=== PATIENT | male | born 1945 | race Caucasian/White ===

== ENCOUNTER 2021-05-28 19:10 | Inpatient (IN) | payer MEDICARE, BC ==
[~2021-05-28] VITALS: Ht 185.4 cm; Wt 102.1 kg
[2021-05-28 20:27] LABS: HEMATOCRIT 39.5 % (36.7-47.1); MEAN CORPUSCULAR HEMOGLOBIN 29.3 uug (23.8-33.4); MEAN CORPUSCULAR VOLUME 88.9 fL (73.0-96.2); PLATELET COUNT (AUTO) 271 K/uL (152-348)
[2021-05-28 20:33] LABS: CREATININE 0.7 mg/dL (0.6-1.3); POTASSIUM 3.4 mmol/L (3.5-5.1)
[2021-05-28 20:36] LABS: BILIRUBIN,DIRECT 0.1 mg/dL (0.0-0.2); BILIRUBIN,TOTAL 0.4 mg/dL (0.2-1.0)
[2021-05-28] MEDS ORDERED: CLONIDINE HCL 0.1 MG TABLET PO ONE (21:15)
[2021-05-28] MEDS ORDERED: CLONIDINE HCL 0.1 MG TABLET ONE (21:29)
[2021-05-28] MEDS ORDERED: TAMS-3 PO (22:23)
[2021-05-28] MEDS ORDERED: doxycycline PO (22:23)
[2021-05-28] MEDS ORDERED: METF-494 PO (22:23)
[2021-05-28] MEDS ORDERED: LOSA1TAB39 PO (22:23)
[2021-05-28] MEDS ORDERED: FINA5TAB11 PO (22:23)
[2021-05-28] MEDS ORDERED: SERT100T PO (22:23)
[2021-05-28] MEDS ORDERED: AMLO10TA59 PO (22:23)
[2021-05-28] MEDS ORDERED: SIMV-49 PO (22:23)
[2021-05-28] MEDS ORDERED: CARV25TA2 PO (22:23)
[2021-05-28] MEDS ORDERED: ZOLPIDEM 5 MG TABLET PO PRN (22:30)
[2021-05-28] MEDS ORDERED: MAG HYDROX/AL HYDROX/SIMETH 30 ML LIQUID UDC PO PRN (22:30)
[2021-05-28] MEDS ORDERED: BLOOD SUGAR DIAGNOSTIC 1 EACH STRIP VI ONE (22:30)
[2021-05-28] MEDS ORDERED: MAGNESIUM HYDROXIDE 30 ML LIQUID UDC PO PRN (22:30)
[2021-05-28] MEDS ORDERED: ACETAMINOPHEN 325 MG TABLET PO PRN (22:30)
[2021-05-28 23:07] VITALS: BP 166/76
[2021-05-29 07:30] VITALS: BP 163/80
[2021-05-29] MEDS: FLUOXETINE HCL 10 MG CAPSULE PO SCH (10:04)
[2021-05-29 15:07] VITALS: BP 174/71
[2021-05-29 19:42] VITALS: BP 165/75
[2021-05-29] MEDS ORDERED: ALBUTEROL SULFATE 2.5 MG/ 0.5 ML NEBU NEB PRN (19:45)
[2021-05-29] MEDS: SIMVASTATIN 40 MG TABLET PO SCH (20:30)
[2021-05-29] MEDS: TAMSULOSIN HCL 0.4 MG CAP.SR.24H PO SCH (20:30)
[2021-05-29] MEDS: CARVEDILOL 25 MG TABLET PO SCH (20:31)
[2021-05-30 07:30] VITALS: BP 166/73
[2021-05-30] MEDS: FINASTERIDE 5 MG TABLET PO SCH (08:49)
[2021-05-30] MEDS: CARVEDILOL 25 MG TABLET PO SCH ×2 (08:50→21:25)
[2021-05-30] MEDS: METFORMIN HCL 500 MG TABLET PO SCH ×2 (08:50→17:11)
[2021-05-30] MEDS: LOSARTAN POTASSIUM 50 MG TABLET PO SCH (08:50)
[2021-05-30] MEDS: HYDROCHLOROTHIAZIDE 25 MG TABLET PO SCH (08:51)
[2021-05-30] MEDS: FLUOXETINE HCL 10 MG CAPSULE PO SCH (08:51)
[2021-05-30] MEDS: AMLODIPINE 10 MG TABLET PO SCH (08:51)
[2021-05-30] MEDS ORDERED: Medication Not On Formulary EA (Losartan/Hydrochlorothiazide (Losartan-Hctz 100-25 Mg Ta PO SCH (09:00)
[2021-05-30] MEDS: hydrALAZINE HCL 50 MG TABLET PO SCH ×2 (13:13→22:30)
[2021-05-30 16:00] VITALS: BP 181/76
[2021-05-30 19:54] VITALS: BP 136/77
[2021-05-30] MEDS: SIMVASTATIN 40 MG TABLET PO SCH (21:25)
[2021-05-30] MEDS: TAMSULOSIN HCL 0.4 MG CAP.SR.24H PO SCH (21:25)
[2021-05-31] MEDS: hydrALAZINE HCL 50 MG TABLET PO SCH ×3 (06:31→22:19)
[2021-05-31 07:30] VITALS: BP 131/44
[2021-05-31] MEDS: AMLODIPINE 10 MG TABLET PO SCH (08:24)
[2021-05-31] MEDS: HYDROCHLOROTHIAZIDE 25 MG TABLET PO SCH (08:25)
[2021-05-31] MEDS: FINASTERIDE 5 MG TABLET PO SCH (08:25)
[2021-05-31] MEDS: METFORMIN HCL 500 MG TABLET PO SCH ×2 (08:25→17:05)
[2021-05-31] MEDS: CARVEDILOL 25 MG TABLET PO SCH ×2 (08:25→20:29)
[2021-05-31] MEDS: LOSARTAN POTASSIUM 50 MG TABLET PO SCH (08:25)
[2021-05-31] MEDS: FLUOXETINE HCL 10 MG CAPSULE PO SCH (08:26)
[2021-05-31] MEDS: Z GUARD REMEDY PASTE 57 GM TUBE TOP SCH ×2 (10:45→20:44)
[2021-05-31 16:00] VITALS: BP 143/73
[2021-05-31 20:00] VITALS: BP 150/62
[2021-05-31] MEDS: TAMSULOSIN HCL 0.4 MG CAP.SR.24H PO SCH (20:29)
[2021-05-31] MEDS: LORAZEPAM 0.5 MG TABLET PO PRN (20:30)
[2021-05-31] MEDS: SIMVASTATIN 40 MG TABLET PO SCH (20:38)
[2021-05-31] MEDS: TRAZODONE 50 MG TABLET PO PRN (22:20)
[2021-06-01] MEDS: hydrALAZINE HCL 50 MG TABLET PO SCH ×3 (06:37→18:00)
[2021-06-01 07:30] VITALS: BP 100/46
[2021-06-01] MEDS: CARVEDILOL 25 MG TABLET PO SCH ×2 (09:00→21:00)
[2021-06-01] MEDS: AMLODIPINE 10 MG TABLET PO SCH (09:00)
[2021-06-01] MEDS: LOSARTAN POTASSIUM 50 MG TABLET PO SCH (09:00)
[2021-06-01] MEDS: HYDROCHLOROTHIAZIDE 25 MG TABLET PO SCH (09:00)
[2021-06-01] MEDS: FINASTERIDE 5 MG TABLET PO SCH (09:45)
[2021-06-01] MEDS: FLUOXETINE HCL 20 MG CAPSULE PO SCH (09:45)
[2021-06-01] MEDS: METFORMIN HCL 500 MG TABLET PO SCH ×2 (09:45→17:17)
[2021-06-01] MEDS: Z GUARD REMEDY PASTE 57 GM TUBE TOP SCH ×2 (09:47→21:19)
[2021-06-01 16:00] VITALS: BP 129/75
[2021-06-01 19:54] VITALS: BP 129/63
[2021-06-01] MEDS: SIMVASTATIN 40 MG TABLET PO SCH (20:59)
[2021-06-01] MEDS: TAMSULOSIN HCL 0.4 MG CAP.SR.24H PO SCH (20:59)
[2021-06-02] MEDS: hydrALAZINE HCL 50 MG TABLET PO SCH ×2 (05:58→17:02)
[2021-06-02 07:30] VITALS: BP 147/66
[2021-06-02] MEDS: AMLODIPINE 10 MG TABLET PO SCH (08:30)
[2021-06-02] MEDS: FINASTERIDE 5 MG TABLET PO SCH (08:30)
[2021-06-02] MEDS: METFORMIN HCL 500 MG TABLET PO SCH ×2 (08:30→17:02)
[2021-06-02] MEDS: CARVEDILOL 25 MG TABLET PO SCH ×2 (08:30→20:21)
[2021-06-02] MEDS: LOSARTAN POTASSIUM 50 MG TABLET PO SCH (08:31)
[2021-06-02] MEDS: HYDROCHLOROTHIAZIDE 25 MG TABLET PO SCH (08:31)
[2021-06-02] MEDS: FLUOXETINE HCL 20 MG CAPSULE PO SCH (08:31)
[2021-06-02] MEDS: Z GUARD REMEDY PASTE 57 GM TUBE TOP SCH ×2 (08:34→20:24)
[2021-06-02 16:00] VITALS: BP 129/60
[2021-06-02 20:00] VITALS: BP 117/60
[2021-06-02] MEDS: TAMSULOSIN HCL 0.4 MG CAP.SR.24H PO SCH (20:21)
[2021-06-02] MEDS: SIMVASTATIN 40 MG TABLET PO SCH (20:21)
[2021-06-02] MEDS: TRAZODONE 50 MG TABLET PO PRN (22:08)
[2021-06-03] MEDS: hydrALAZINE HCL 50 MG TABLET PO SCH ×2 (05:56→17:00)
[2021-06-03 08:00] VITALS: BP 145/57
[2021-06-03] MEDS: METFORMIN HCL 500 MG TABLET PO SCH ×2 (08:26→17:00)
[2021-06-03] MEDS: AMLODIPINE 10 MG TABLET PO SCH (08:27)
[2021-06-03] MEDS: FINASTERIDE 5 MG TABLET PO SCH (08:27)
[2021-06-03] MEDS: Z GUARD REMEDY PASTE 57 GM TUBE TOP SCH ×2 (08:28→20:25)
[2021-06-03] MEDS: FLUOXETINE HCL 20 MG CAPSULE PO SCH (08:28)
[2021-06-03] MEDS: LOSARTAN POTASSIUM 50 MG TABLET PO SCH (08:28)
[2021-06-03] MEDS: CARVEDILOL 25 MG TABLET PO SCH ×2 (08:28→20:22)
[2021-06-03] MEDS: HYDROCHLOROTHIAZIDE 25 MG TABLET PO SCH (09:32)
[2021-06-03 16:00] VITALS: BP 150/73
[2021-06-03] MEDS: TAMSULOSIN HCL 0.4 MG CAP.SR.24H PO SCH (20:22)
[2021-06-03] MEDS: SIMVASTATIN 40 MG TABLET PO SCH (20:22)
[2021-06-03 20:27] VITALS: BP 129/59
[2021-06-03] MEDS: TRAZODONE 50 MG TABLET PO PRN (22:58)
[2021-06-04] MEDS: LORAZEPAM 0.5 MG TABLET PO PRN ×2 (00:43→21:38)
[2021-06-04] MEDS: hydrALAZINE HCL 50 MG TABLET PO SCH ×2 (06:25→17:48)
[2021-06-04] MEDS ORDERED: TRAZODONE 50 MG TABLET PO PRN (07:45)
[2021-06-04 07:57] VITALS: BP 123/60
[2021-06-04] MEDS ORDERED: TRAZODONE 100 MG TABLET PO PRN (08:00)
[2021-06-04] MEDS: FLUOXETINE HCL 20 MG CAPSULE PO SCH (08:51)
[2021-06-04] MEDS: METFORMIN HCL 500 MG TABLET PO SCH ×2 (08:51→17:47)
[2021-06-04] MEDS: FINASTERIDE 5 MG TABLET PO SCH (08:52)
[2021-06-04] MEDS: HYDROCHLOROTHIAZIDE 25 MG TABLET PO SCH (08:52)
[2021-06-04] MEDS: LOSARTAN POTASSIUM 50 MG TABLET PO SCH (08:53)
[2021-06-04] MEDS: CARVEDILOL 25 MG TABLET PO SCH ×2 (08:54→21:07)
[2021-06-04] MEDS: AMLODIPINE 10 MG TABLET PO SCH (08:54)
[2021-06-04] MEDS: Z GUARD REMEDY PASTE 57 GM TUBE TOP SCH ×2 (08:55→21:38)
[2021-06-04 16:37] VITALS: BP 151/80
[2021-06-04 20:21] VITALS: BP 160/81
[2021-06-04] MEDS: SIMVASTATIN 40 MG TABLET PO SCH (21:07)
[2021-06-04] MEDS: TAMSULOSIN HCL 0.4 MG CAP.SR.24H PO SCH (21:07)
[2021-06-04] MEDS: TRAZODONE 100 MG TABLET PO PRN (23:10)
[2021-06-04 23:45] VITALS: BP 132/56
[2021-06-05] MEDS: hydrALAZINE HCL 50 MG TABLET PO SCH ×2 (06:25→17:41)
[2021-06-05 07:30] VITALS: BP 146/60
[2021-06-05] MEDS: FLUOXETINE HCL 20 MG CAPSULE PO SCH (08:12)
[2021-06-05] MEDS: METFORMIN HCL 500 MG TABLET PO SCH ×2 (08:12→17:41)
[2021-06-05] MEDS: HYDROCHLOROTHIAZIDE 25 MG TABLET PO SCH (08:13)
[2021-06-05] MEDS: AMLODIPINE 10 MG TABLET PO SCH (08:13)
[2021-06-05] MEDS: LOSARTAN POTASSIUM 50 MG TABLET PO SCH (08:13)
[2021-06-05] MEDS: FINASTERIDE 5 MG TABLET PO SCH (08:13)
[2021-06-05] MEDS: CARVEDILOL 25 MG TABLET PO SCH ×2 (08:14→20:58)
[2021-06-05] MEDS: Z GUARD REMEDY PASTE 57 GM TUBE TOP SCH ×2 (08:14→21:28)
[2021-06-05] MEDS ORDERED: HYDROXYZINE PAMOATE 25 MG CAPSULE PO PRN (08:15)
[2021-06-05 15:06] VITALS: BP 110/56
[2021-06-05 20:00] VITALS: BP 161/76
[2021-06-05] MEDS: TAMSULOSIN HCL 0.4 MG CAP.SR.24H PO SCH (20:57)
[2021-06-05] MEDS: SIMVASTATIN 40 MG TABLET PO SCH (20:57)
[2021-06-05 21:53] VITALS: BP 151/59
[2021-06-05] MEDS: TRAZODONE 100 MG TABLET PO PRN (23:39)
[2021-06-06] MEDS: hydrALAZINE HCL 50 MG TABLET PO SCH ×2 (06:06→17:09)
[2021-06-06 07:30] VITALS: BP 146/65
[2021-06-06] MEDS: METFORMIN HCL 500 MG TABLET PO SCH ×2 (08:25→17:05)
[2021-06-06] MEDS: AMLODIPINE 10 MG TABLET PO SCH (08:58)
[2021-06-06] MEDS: CARVEDILOL 25 MG TABLET PO SCH ×2 (08:59→20:15)
[2021-06-06] MEDS: HYDROCHLOROTHIAZIDE 25 MG TABLET PO SCH (08:59)
[2021-06-06] MEDS: FINASTERIDE 5 MG TABLET PO SCH (08:59)
[2021-06-06] MEDS: FLUOXETINE HCL 20 MG CAPSULE PO SCH (09:00)
[2021-06-06] MEDS: LOSARTAN POTASSIUM 50 MG TABLET PO SCH (09:01)
[2021-06-06] MEDS: Z GUARD REMEDY PASTE 57 GM TUBE TOP SCH ×2 (09:02→20:27)
[2021-06-06 16:00] VITALS: BP 135/62
[2021-06-06 19:51] VITALS: BP 111/55
[2021-06-06] MEDS: SIMVASTATIN 40 MG TABLET PO SCH (20:15)
[2021-06-06] MEDS: TAMSULOSIN HCL 0.4 MG CAP.SR.24H PO SCH (20:15)
[2021-06-06] MEDS: TRAZODONE 100 MG TABLET PO PRN (22:12)
[2021-06-07] MEDS: hydrALAZINE HCL 50 MG TABLET PO SCH (06:18)
[2021-06-07 07:30] VITALS: BP 140/61
[2021-06-07] MEDS: FINASTERIDE 5 MG TABLET PO SCH (08:33)
[2021-06-07] MEDS: METFORMIN HCL 500 MG TABLET PO SCH (08:33)
[2021-06-07] MEDS: HYDROCHLOROTHIAZIDE 25 MG TABLET PO SCH (08:34)
[2021-06-07] MEDS: LOSARTAN POTASSIUM 50 MG TABLET PO SCH (08:34)
[2021-06-07] MEDS: FLUOXETINE HCL 20 MG CAPSULE PO SCH (08:34)
[2021-06-07] MEDS: Z GUARD REMEDY PASTE 57 GM TUBE TOP SCH (08:35)
[2021-06-07] MEDS: AMLODIPINE 10 MG TABLET PO SCH (08:35)
[2021-06-07 08:41] VITALS: BP 140/61
[2021-06-07] MEDS: CARVEDILOL 25 MG TABLET PO SCH (08:41)
== END 2021-06-07 13:12 | DRG 885 ==
LOC: ER 19:17 → GPS 22:19
PROVIDERS: ADMIT Psychiatry & Neurology Psychiatry; ATTEND Nurse Practitioner Acute Care
PROC: 0HBRXZZ Excision of Toe Nail, External Approach (ICD-10-PCS; principal; 2021-05-29)
DX: F33.2 Major depressive disorder, recurrent severe without psychotic features (principal); E44.1 Mild protein-calorie malnutrition; R45.851 Suicidal ideations; T42.4X2D Poisoning by benzodiazepines, intentional self-harm, subsequent encounter; I10 Essential (primary) hypertension; E11.9 Type 2 diabetes mellitus without complications; E87.6 Hypokalemia; J44.9 Chronic obstructive pulmonary disease, unspecified; E78.5 Hyperlipidemia, unspecified; E86.0 Dehydration; M20.41 Other hammer toe(s) (acquired), right foot; M20.42 Other hammer toe(s) (acquired), left foot; N40.0 Benign prostatic hyperplasia without lower urinary tract symptoms; M79.672 Pain in left foot; M79.671 Pain in right foot; Z68.29 Body mass index [BMI] 29.0-29.9, adult; Z91.51 Personal history of suicidal behavior
CPT/HCPCS: 36415; 70030-TC; 71045; 83735; 85025; 93005; 97161; A4663